=== PATIENT | female | born 1975 | race Caucasian/White ===

== ENCOUNTER 2019-09-30 06:07 | Day surgery (SDC) | payer OTHER ==
[2019-09-29 16:20] VITALS: BMI 23.1
[2019-09-30] MEDS ORDERED: PROPOFOL 20 ML ONE ×3 (07:22)
[2019-09-30] MEDS ORDERED: ROCURONIUM BROMIDE 50 MG/5 ML SYRINGE ONE (07:22)
[2019-09-30] MEDS ORDERED: SUCCINYLCHOLINE CHLORIDE 200 MG/10 ML SYRINGE ONE (07:22)
[2019-09-30] MEDS ORDERED: MIDAZOLAM HCL 2 MG/2 ML SINGLE DOSE VIAL ONE (07:22)
--- NOTE | 2019-09-30 07:27 | HP ---
History & Physical Update - History History: No Change (no changes, for hysteroscopy D&C , polypectomy) - Physical Physical: No Change - Assessment Assessment: No Change - Plan Plan: No Change
[2019-09-30] MEDS ORDERED: ONDANSETRON 4 MG/2 ML VIAL IVPUSH PRN (09:05)
[2019-09-30] MEDS ORDERED: IBUPROFEN 800 MG/8 ML IJ IVPB PRN (09:05)
[2019-09-30] MEDS ORDERED: IBUPROFEN 600 MG TABLET (FP) PO PRN (09:05)
[2019-09-30] MEDS ORDERED: oxyCODONE HCL 5 MG TABLET PO PRN (09:05)
--- NOTE | 2019-09-30 09:08 | OP ---
Operative Note - Note: Operative Date: 09/30/19 Pre-Operative Diagnosis: menorrhagia, submucos myoma Operation: hysteroscopy , D&C , resection of submucos myoma Findings: 2 submucos myoma, EM irregular , small floating polyp Surgeon: Audie Gallo Anesthesia: General Specimens Removed: submucos muoma, EMC Estimated Blood Loss (mls): 50 Instrument used (Debridements only): symphion Drains & Tubes with Location: none Blood Volume Replaced (mls): 0 Operative Report Dictated: Yes
[2019-09-30] MEDS ORDERED: ELECTROLYTE-148 SOLN 1,000 ML IV SCH (09:15)
[2019-09-30] MEDS ORDERED: LACTATED RINGERS SOLUTION 1,000 ML IV SCH (09:15)
[2019-09-30] MEDS ORDERED: IBUPROFEN 600 MG TABLET (FP) PO ONE (10:51)
[2019-09-30 10:56] VITALS: TEMP 97.7
[2019-09-30 11:42] VITALS: BP 127/79; PULSE 79
--- NOTE | 2019-10-01 15:53 | OP ---
DATE OF OPERATION: 09/30/2019 PREOPERATIVE DIAGNOSIS: Menorrhagia, submucous myoma. POSTOPERATIVE DIAGNOSIS: Menorrhagia, submucous myoma. PROCEDURE: Hysteroscopy, dilation and curettage, and resection of submucous myoma with Symphion resectoscope. SURGEON: Audie Gallo MD ANESTHESIA: General. ESTIMATED BLOOD LOSS: 50 mL. DESCRIPTION OF PROCEDURE: Patient was taken to the operating room. Under adequate general anesthesia in dorsal lithotomy position, examination under anesthesia revealed external genitalia to be normal. Vagina was normal. Cervix was clean, no gross lesion. Uterus was slightly prominent. Adnexa, no masses were palpable. Then with a weighted speculum in the vagina, anterior lip of the cervix was grasped with single-tooth tenaculum. Uterine cavity was sounded to 9 cm. Then cervix was slightly dilated with Hegar dilator, and then Symphion hysteroscope was introduced. Visualization of endocervical canal appeared to be normal. There were 2 small submucous myomas, one at the level of lower uterine segment and then one at the fundal area, and also couple of small floating polyps were seen in the fundal area of the uterus. Both cornual regions were identified. No other abnormality noted. Then the Symphion resectoscope was introduced and submucous myoma first was dissected, and then polyps were also resected and suctioned, and then cavity appeared to be clear and regular. No active bleeding was seen. Hysteroscope was withdrawn, and then cervix was dilated with Hegar dilator, and then endometrial curetting was done. Patient tolerated the procedure, left the OR in good condition. Cheli [id number]
--- NOTE | 2019-10-01 18:11 | PATH ---
Surgical Pathology Report Patient Name: DARYN MONTOYA Med. Rec. #: [id number] /Age/Gender: 1975 (Age: 44) / F Account: [id number] Location: [facility] SURGICAL Taken: 09/30/2019 Received: 09/30/2019 Reported: 10/01/2019 Physicians: Audie Gallo M.D. Specimen(s) Received A: ENDOMETRIAL CURETTINGS B: FIBROIDS Clinical History Pelvic and perineal pain Final Diagnosis A. ENDOMETRIAL CURETTINGS, DILATION AND CURETTAGE: FRAGMENTS OF SECRETORY ENDOMETRIUM, FIBROMUSCULAR TISSUE, AND BENIGN CERVICAL TISSUE. B. FIBROID, HYSTEROSCOPIC RESECTION: 1G, FRAGMENTS OF FIBROMUSCULAR TISSUE CONSISTENT WITH SUBMUCOSAL LEIOMYOMA AND SECRETORY ENDOMETRIUM. Electronically Signed Maritza Bill M.D. Gross Description A. Received in formalin labeled "endometrial curettings," is a 2.2 x 1.8 x 0.3 cm aggregate of red-brown soft tissue fragments. The formalin is filtered and the specimen is entirely submitted in one cassette. B. Received in formalin labeled "fibroid," is a 1 g, 2.5 x 2.0 x 0.3 cm aggregate of miner-pink tissue fragments. The formalin is filtered and the specimen is entirely submitted in one cassette. /09/30/2019 [facility]/09/30/2019
== END 2019-09-30 11:30 | disposition home or self-care (01) ==
LOC: JASU-SURG 06:07
PROVIDERS: ATTEND Obstetrics & Gynecology
PROC: 0UJD8ZZ Inspection of Uterus and Cervix, Via Natural or Artificial Opening Endoscopic (ICD-10-PCS; 2019-09-30)
PROC: 0UB98ZZ Excision of Uterus, Via Natural or Artificial Opening Endoscopic (ICD-10-PCS; principal; 2019-09-30 08:00)
PROC: 0UDB7ZX Extraction of Endometrium, Via Natural or Artificial Opening, Diagnostic (ICD-10-PCS; 2019-09-30 08:00)
DX: N92.0 Excessive and frequent menstruation with regular cycle (principal); D25.0 Submucous leiomyoma of uterus
CPT/HCPCS: 36415; 84703; 86850; 86900; 86901; 88305-TC; 88307-TC; 94760

== ENCOUNTER 2021-08-08 14:39 | Emergency (ER) | payer OTHER ==
[2021-08-08 14:47] VITALS: BP 137/80; PULSE 89; TEMP 99.5; BMI 26.2
[2021-08-08] MEDS ORDERED: SODIUM CHLORIDE 0.9% 500 ML INFUS.BAG IV ONE (15:49)
[2021-08-08 17:04] LABS: PH,URINE 6.5 (5.0-8.0); URINE APPEARANCE CLEAR; URINE BILIRUBIN NEGATIVE (NEGATIVE); URINE COLOR ORANGE; URINE GLUCOSE (UA) NEGATIVE (NEGATIVE); URINE KETONE NEGATIVE (NEGATIVE); URINE LEUK ESTERASE NEGATIVE (NEGATIVE); URINE NITRITE NEGATIVE (NEGATIVE); URINE PROTEIN NEGATIVE (NEGATIVE); URINE UROBILINOGEN 0.2 mg/dL (0.2-1.0)
[2021-08-08 17:09] LABS: BASO % 0.4 % (0-2.0); HEMOGLOBIN 11.8 GM/dL (10.7-15.3); LYMPH % 33.7 % (8-40); MCH 26.2 pg (25.7-33.7); MCHC 32.8 g/dl (32.0-36.0); MEAN CELL VOLUME 79.8 fl (80-96); MEAN PLT VOLUME 9.5 fl (7.5-11.1); MONO % 6.2 % (3.8-10.2); NEUT % 59.7 % (42.8-82.8); PLATELET COUNT 219 10^3/uL (134-434); RBC 4.51 M/mm3 (3.60-5.2); RDW 14.4 % (11.6-15.6)
[2021-08-08 17:23] LABS: CALCIUM 8.4 mg/dL (8.5-10.1)
[2021-08-08 17:24] LABS: ALBUMIN 4.1 g/dl (3.4-5.0); BLOOD UREA NITROGEN 7.1 mg/dL (7-18)
[2021-08-08 17:27] LABS: CREATININE 0.7 mg/dL (0.55-1.3)
[2021-08-08 17:28] LABS: BILIRUBIN,TOTAL 0.3 mg/dL (0.2-1); TOT PROT 7.4 g/dl (6.4-8.2)
== END 2021-08-08 19:12 | disposition home or self-care (01) ==
LOC: JER 14:39
DX: R50.9 Fever, unspecified (principal)
CPT/HCPCS: 0241U-QW; 36415; 71046-TC-FY; 80053; 81003; 85025; 87086; 99284-25